=== PATIENT | male | born 1950 | race Caucasian/White ===

== ENCOUNTER 2016-11-28 10:58 | Day surgery (SDC) | payer MEDICARE ==
[~2016-11-28] VITALS: Ht 167.6 cm; Wt 79.0 kg
[~2016-11-28 10:58] MED LIST: ASCO500T8 PO; ATOR40TA78 PO; BUPIVACAINE/PF-EPI 0.25% 1:200K ONE; FEXO180T72 PO; FLEC100T PO; FLUT9.9S NAS; METO25TA35 PO; No meds per pt.; WARF5TAB PO
[2016-11-28 11:30] VITALS: BP 118/84
[2016-11-28] MEDS ORDERED: LACTATED RINGERS 1,000 ML IV SCH (11:34)
[2016-11-28] MEDS ORDERED: LIDOCAINE 1%, 2ML ONE (11:39)
[2016-11-28] MEDS ORDERED: LIDOCAINE 1%, 2ML SQ PRN (12:00)
[2016-11-28] MEDS ORDERED: FENTANYL PF 250 MCG/5ML ONE (12:20)
[2016-11-28] MEDS ORDERED: MIDAZOLAM 1 MG/ML, 2ML ONE (12:21)
[2016-11-28] MEDS ORDERED: ACETAMINOPHEN 325 MG TABLET PO PRN (13:00)
[2016-11-28] MEDS ORDERED: hydrALAzine 20 MG/ML, 1ML IV PRN (13:00)
[2016-11-28] MEDS ORDERED: ONDANSETRON 2MG/ML, 2ML IVPush PRN (13:00)
[2016-11-28] MEDS ORDERED: PROMETHAZINE 25 MG/ML, 1ML IV PRN (13:00)
[2016-11-28] MEDS ORDERED: LABETALOL 5MG/ML, 20ML IV PRN (13:00)
[2016-11-28] MEDS ORDERED: HYDROcodone/APAP 7.5-325MG/15ML UDC PO PRN (13:00)
[2016-11-28] MEDS ORDERED: HYDROmorphone 1 MG/ML, 1ML IV PRN (13:00)
[2016-11-28] MEDS ORDERED: METOCLOPRAMIDE 5 MG/ML, 2ML IV PRN (13:00)
[2016-11-28] MEDS ORDERED: PROPOFOL 10 MG/ML, 20ML ONE (13:04)
[2016-11-28] MEDS ORDERED: GLYCOPYRROLATE 0.2MG/1ML ONE (13:04)
[2016-11-28] MEDS ORDERED: CEFAZOLIN 1,000 MG ONE (13:04)
[2016-11-28] MEDS ORDERED: NEOSTIGMINE 1 MG/ML, 10ML ONE (13:04)
[2016-11-28] MEDS ORDERED: ROCURONIUM 10 MG/ML ONE (13:04)
[2016-11-28] MEDS ORDERED: BUPIVACAINE/PF-EPI 0.25% 1:200K INFIL ONE (13:25)
[2016-11-28] MEDS ORDERED: HYDROcodone/APAP 7.5-325MG/15ML UDC ONE (14:19)
[2016-11-28] MEDS ORDERED: FENTANYL PF 100 MCG/2ML ONE (14:19)
[2016-11-28] MEDS: FENTANYL PF 100 MCG/2ML IV PRN ×2 (14:22→14:35)
[2016-11-28] MEDS ORDERED: KETOROLAC 30 MG/1 ML IVPush PRN ×2 (16:00→16:13)
[2016-11-28] MEDS ORDERED: morphine SULFATE 10 MG/ML, 1ML IVPush PRN (16:00)
[2016-11-28] MEDS ORDERED: KETOROLAC 30 MG/1 ML ONE (16:02)
== END 2016-11-28 17:10 | disposition home or self-care (01) ==
LOC: OUT 10:58
PROVIDERS: ATTEND Surgery
DX: K40.90 Unilateral inguinal hernia, without obstruction or gangrene, not specified as recurrent (principal); I48.0 Paroxysmal atrial fibrillation
CPT/HCPCS: 49505; C1781; J0690; J1885; J2250; J2704; J2710; J3010; J3490; J7120